=== PATIENT | female | born 1985 | race African-American/Black ===

== ENCOUNTER 2022-12-09 21:34 | Inpatient (IN) | payer OTHER ==
[~2022-12-09] VITALS: Ht 162.6 cm; Wt 49.5 kg
[~2022-12-09 21:34] MED LIST: KEPP250 PO
[2022-12-09] MEDS ORDERED: LEVETIRACETAM 1000MG PREMIX 100 ML IV ONE (22:00)
[2022-12-09 22:31] LABS: CHLORIDE 107 mEq/L (98-107)
[2022-12-09 22:32] LABS: HEMATOCRIT. 45.4 % (36.0-48.0); HEMOGLOBIN. 14.8 g/dL (12.0-16.0); MEAN CORPUSCULAR HEMOGLOBIN 28.2 pg (28.0-32.0); MEAN CORPUSCULAR VOLUME 86.4 fL (81.0-99.0); MEAN PLATELET VOLUME 8.3 fl (7.4-10.4); PLATELET 335 x1000/uL (130-400); RED BLOOD CELL COUNT 5.25 mill/uL (4.2-5.4); RED CELL DISTRIBUTION WIDTH 13.8 % (11.6-14.6)
[2022-12-09 22:36] LABS: HCG SCREEN NEGATIVE
[2022-12-09 22:38] LABS: ETHANOL BLOOD < 10 mg/dL
[2022-12-09 22:54] LABS: PLATELET ESTIMATE NORMAL
[2022-12-09 23:44] LABS: CLARITY URINE CLOUDY (CLEAR); COLOR URINE YELLOW (YELLOW); KETONES URINE 1+ (NEGATIVE); LEUKOCYTE ESTERASE URINE NEGATIVE (NEGATIVE); NITRITE URINE NEGATIVE (NEGATIVE); OCCULT BLOOD URINE TRACE (NEGATIVE); PH URINE 5.5 (4.5-8.0); PROTEIN URINE 1+ (NEGATIVE); SPECIFIC GRAVITY URINE 1.025 (1.005-1.030); UROBILINOGEN URINE 0.2 E.U./dL (0.2-1.0)
[2022-12-10] LABS: *AMPHETAMINES SCREEN URINE NEGATIVE (NEGATIVE); *BARBITURATES SCREEN URINE NEGATIVE (NEGATIVE); *BENZODIAZEPINES SCREEN URINE NEGATIVE (NEGATIVE); *COCAINE SCREEN URINE NEGATIVE (NEGATIVE); METHADONE URINE SCREEN NEGATIVE (NEGATIVE); OPIATES URINE SCREEN NEGATIVE (NEGATIVE); PHENCYCLIDINE URINE SCREEN NEGATIVE (NEGATIVE)
[2022-12-10 00:04] LABS: CANNABINOID URINE SCREEN PRESUMTIVE POSITIVE (NEGATIVE)
[2022-12-10 04:00] VITALS: BP 127/91
[2022-12-10 08:00] VITALS: BP 106/68
[2022-12-10] MEDS: LEVETIRACETAM 1,000 MG in SODIUM CHLORIDE 0.9% 100 ML IV SCH ×2 (08:54→21:31)
[2022-12-10 10:42] LABS: BASOPHILS % 0.3 % (0.0-2.0); EOSINOPHILS % 0.1 % (0.0-5.0); HEMATOCRIT. 42.8 % (36.0-48.0); HEMOGLOBIN. 14.5 g/dL (12.0-16.0); LYMPHOCYTES % 11.3 % (20.0-50.0); MEAN CORPUSCULAR HEMOGLOBIN 28.8 pg (28.0-32.0); MEAN CORPUSCULAR VOLUME 85.3 fL (81.0-99.0); MEAN PLATELET VOLUME 8.2 fl (7.4-10.4); MONOCYTES % 6.8 % (2.0-8.0); NEUTROPHILS % 81.5 % (40.0-76.0); PLATELET 322 x1000/uL (130-400); RED BLOOD CELL COUNT 5.02 mill/uL (4.2-5.4); RED CELL DISTRIBUTION WIDTH 13.9 % (11.6-14.6)
[2022-12-10 10:54] LABS: CHLORIDE 109 mEq/L (98-107)
[2022-12-10 12:00] VITALS: BP 110/74
[2022-12-10] MEDS ORDERED: ACETAMINOPHEN 325MG TABLET PO PRN (15:30)
[2022-12-10 15:53] LABS: HEPATITIS B SURFACE ANTIGEN NEGATIVE
[2022-12-10 16:00] VITALS: BP 108/54
[2022-12-10] MEDS: LORAZEPAM 2MG/ML CPJ IV PRN (17:32)
[2022-12-10 20:00] VITALS: BP 126/73
[2022-12-11] VITALS: BP 100/70
[2022-12-11] MEDS: LORAZEPAM 2MG/ML CPJ IV PRN (00:10)
[2022-12-11 05:09] VITALS: BP 109/65
[2022-12-11 08:00] VITALS: BP 105/70
[2022-12-11] MEDS: LEVETIRACETAM 1,000 MG in SODIUM CHLORIDE 0.9% 100 ML IV SCH (09:22)
[2022-12-11 12:00] VITALS: BP 119/62
[2022-12-11 14:53] VITALS: BP 112/65
== END 2022-12-11 16:20 | disposition home or self-care (01) | DRG 812 ==
LOC: ER 21:54 → MICUSO 12-10 01:24 → 7WST 12-10 04:21
PROVIDERS: ADMIT Internal Medicine; ATTEND Internal Medicine
DX: T40.721A Poisoning by synthetic cannabinoids, accidental (unintentional), initial encounter (principal); G92.8 Other toxic encephalopathy; R65.10 Systemic inflammatory response syndrome (SIRS) of non-infectious origin without acute organ dysfunction; G40.909 Epilepsy, unspecified, not intractable, without status epilepticus; Z91.199 Patient's noncompliance with other medical treatment and regimen due to unspecified reason; F12.90 Cannabis use, unspecified, uncomplicated
CPT/HCPCS: 36415; 80048; 80053; 80305; 80320; 81003; 84703; 85025; 86803; 87340; 99285; J1953; J2060; J7050; G0480